=== PATIENT | male | born 1980 | race African-American/Black ===

== ENCOUNTER 2017-04-30 23:47 | Emergency (ER) | payer SELFPAY ==
[~2017-04-30] VITALS: Ht 177.8 cm; Wt 80.0 kg
[2017-04-30 23:50] VITALS: BP 104/64; PULSE 79; RESP 16; TEMP 98.6; O2SAT 99
--- NOTE | 2017-05-01 02:08 | PD ---
HPI Chief Complaint: Suicide Ideation/Attempt Time Seen by Provider: 01:58 Travel History International Travel<30 days: No Contact w/Intl Traveler<30days: No Traveled to known affect area: No History of Present Illness HPI 36-year-old black male presents to emergency department on a voluntary basis for psychological evaluation. The patient states that he has a history of schizophrenia, chronic back pain and neuropathy. He had been living in [place] but is from his significant other. He alleges that he was dropped off here in [facility] by someone. He is now homeless on the streets. He claims that he is feeling depressed and suicidal. He will not elaborate on any plan. He denies any homicidal ideation. He denies toxic ingestion. He denies any active medical complaints other than his chronic back pain and neuropathy. PFSH Past Medical History Bipolar Disorder: Yes Anxiety: Yes Depression: Yes Diminished Hearing: No Musculoskeletal: Yes (slipped disc and pinched nerve) Schizophrenia: Yes Tetanus Vaccination: Unknown Past Surgical History Other Surgery: Yes (arthroscopic knee) Social History Alcohol Use: No Tobacco Use: Yes Substance Use: Yes (unsure ) Allergies-Medications (Allergen,Severity, Reaction): Coded Allergies: No Known Allergies (Unverified , 04/30/17) Review of Systems General / Constitutional: No: Fever Eyes: No: Visual changes HENT: No: Headaches Cardiovascular: No: Chest Pain or Discomfort Respiratory: No: Shortness of Breath Gastrointestinal: No: Abdominal Pain Genitourinary: No: Dysuria Musculoskeletal: No: Pain Skin: No Rash Neurologic: No: Weakness Psychiatric: Positive: Suicidal Ideations, Mood Disorder, Substance Abuse, No: Anxiety, Depression, Disorder of Thought, Homicidal Ideation Endocrine: No: Polydipsia Hematologic/Lymphatic: No: Easy Bruising Physical Exam Narrative GENERAL: Well-nourished, well-developed patient. The patient appeared to be more interested in sleeping. He refuses to sit up and engage me during our history and exam. He lays back and closes his eyes. He pulls his arms into his shirt and goes to sleep readily. SKIN: Warm and dry. HEAD: Normocephalic and atraumatic. EYES: No scleral icterus. No injection or drainage. ENT: No nasal drainage noted. Mucous membranes pink. Airway patent. NECK: Supple, trachea midline. Moves head freely without obvious discomfort. CARDIOVASCULAR: Regular rate and rhythm without murmurs, gallops, or rubs. RESPIRATORY: Breath sounds equal bilaterally. No accessory muscle use. GASTROINTESTINAL: Abdomen soft, non-tender, nondistended. EXTREMITIES: No cyanosis or edema. BACK: Nontender without obvious deformity. No CVA tenderness. NEURO: Patient is alert and oriented. no sensorimotor deficits. Nonfocal. Normal speech. PSYCH: No delusions. No auditory or visual hallucinations. Data Data Last Documented VS Vital Signs Date Time Temp Pulse Resp B/P (MAP) Pulse Ox O2 Delivery O2 Flow Rate FiO2 05/01/17 04:20 74 16 96 Room Air 04/30/17 23:50 98.6 Orders Orders Complete Blood Count With Diff (05/01/17 02:09) Comprehensive Metabolic Panel (05/01/17 02:09) Psych Screen (05/01/17 02:09) Drug Screen, Random Urine (05/01/17 02:09) Alcohol (Ethanol) (05/01/17 02:09) Labs Laboratory Tests Test 05/01/17 02:57 05/01/17 04:40 White Blood Count 6.4 TH/MM3 Red Blood Count 4.32 MIL/MM3 Hemoglobin 12.6 GM/DL Hematocrit 38.4 % Mean Corpuscular Volume 88.9 FL Mean Corpuscular Hemoglobin 29.3 PG Mean Corpuscular Hemoglobin Concent 32.9 % Red Cell Distribution Width 13.2 % Platelet Count 252 TH/MM3 Mean Platelet Volume 8.4 FL Neutrophils (%) (Auto) 57.8 % Lymphocytes (%) (Auto) 24.0 % Monocytes (%) (Auto) 11.8 % Eosinophils (%) (Auto) 5.5 % Basophils (%) (Auto) 0.9 % Neutrophils # (Auto) 3.7 TH/MM3 Lymphocytes # (Auto) 1.5 TH/MM3 Monocytes # (Auto) 0.8 TH/MM3 Eosinophils # (Auto) 0.4 TH/MM3 Basophils # (Auto) 0.1 TH/MM3 CBC Comment DIFF FINAL Differential Comment Blood Urea Nitrogen 15 MG/DL Creatinine 1.11 MG/DL Random Glucose 98 MG/DL Total Protein 7.5 GM/DL Albumin 3.6 GM/DL Calcium Level 8.6 MG/DL Alkaline Phosphatase 76 U/L Aspartate Amino Transf (AST/SGOT) 22 U/L Alanine Aminotransferase (ALT/SGPT) 25 U/L Total Bilirubin 0.7 MG/DL Sodium Level 138 MEQ/L Potassium Level 3.8 MEQ/L Chloride Level 104 MEQ/L Carbon Dioxide Level 28.9 MEQ/L Anion Gap 5 MEQ/L Estimat Glomerular Filtration Rate 75 ML/MIN Ethyl Alcohol Level LESS THAN 3 MG/DL Urine Opiates Screen NEG Urine Barbiturates Screen NEG Urine Amphetamines Screen NEG Urine Benzodiazepines Screen NEG Urine Cocaine Screen POS Urine Cannabinoids Screen POS MDM Medical Decision Making Medical Screen Exam Complete: Yes Emergency Medical Condition: Yes Medical Record Reviewed: Yes Interpretation(s) Laboratory Tests Test 05/01/17 02:57 05/01/17 04:40 White Blood Count 6.4 TH/MM3 Red Blood Count 4.32 MIL/MM3 Hemoglobin 12.6 GM/DL Hematocrit 38.4 % Mean Corpuscular Volume 88.9 FL Mean Corpuscular Hemoglobin 29.3 PG Mean Corpuscular Hemoglobin Concent 32.9 % Red Cell Distribution Width 13.2 % Platelet Count 252 TH/MM3 Mean Platelet Volume 8.4 FL Neutrophils (%) (Auto) 57.8 % Lymphocytes (%) (Auto) 24.0 % Monocytes (%) (Auto) 11.8 % Eosinophils (%) (Auto) 5.5 % Basophils (%) (Auto) 0.9 % Neutrophils # (Auto) 3.7 TH/MM3 Lymphocytes # (Auto) 1.5 TH/MM3 Monocytes # (Auto) 0.8 TH/MM3 Eosinophils # (Auto) 0.4 TH/MM3 Basophils # (Auto) 0.1 TH/MM3 CBC Comment DIFF FINAL Differential Comment Blood Urea Nitrogen 15 MG/DL Creatinine 1.11 MG/DL Random Glucose 98 MG/DL Total Protein 7.5 GM/DL Albumin 3.6 GM/DL Calcium Level 8.6 MG/DL Alkaline Phosphatase 76 U/L Aspartate Amino Transf (AST/SGOT) 22 U/L Alanine Aminotransferase (ALT/SGPT) 25 U/L Total Bilirubin 0.7 MG/DL Sodium Level 138 MEQ/L Potassium Level 3.8 MEQ/L Chloride Level 104 MEQ/L Carbon Dioxide Level 28.9 MEQ/L Anion Gap 5 MEQ/L Estimat Glomerular Filtration Rate 75 ML/MIN Ethyl Alcohol Level LESS THAN 3 MG/DL Urine Opiates Screen NEG Urine Barbiturates Screen NEG Urine Amphetamines Screen NEG Urine Benzodiazepines Screen NEG Urine Cocaine Screen POS Urine Cannabinoids Screen POS Differential Diagnosis MDM: High Differential diagnoses: Schizophrenia, schizoaffective disorder, bipolar, anxiety, depression, adjustment reaction, mood disorder NOS, ODD, depressive disorder NOS, dementia, dementia with agitation, psychosis NOS, substance induced mood disorder, intermittent explosive disorder, Asperger syndrome, infection,electrolyte abnormality, malingering. Narrative Course Mental health screening discussed with the patient. Psychiatric screen ordered. The patient's been medically cleared. The patient's drug screen is positive for cocaine and marijuana. This is medical clearance for psychiatric admission, malingering, substance abuse Diagnosis Primary Impression: Medical clearance for psychiatric admission Additional Impressions: Malingering Substance abuse Condition: Stable Brayan Marr May 01, 2017 02:08
[2017-05-01 03:34] LABS: AUTOMATED NEUTROPHIL # 3.7 TH/MM3 (1.8-7.7); BASOPHIL # 0.1 TH/MM3 (0-0.2); BASOPHIL % 0.9 % (0.0-2.0); EOSINOPHIL # 0.4 TH/MM3 (0-0.4); EOSINOPHIL % 5.5 % (0.0-4.0); HEMATOCRIT 38.4 % (39.0-51.0); HEMO FLAGS DIFF FINAL; LYMPHOCYTE # 1.5 TH/MM3 (1.0-4.8); MEAN CELL VOLUME 88.9 FL (80.0-100.0); MEAN CORPUSCULAR HEMOGLOBIN 29.3 PG (27.0-34.0); MEAN CORPUSCULAR HGB CONC 32.9 % (32.0-36.0); MONO % 11.8 % (0.0-8.0); NEUT % 57.8 % (16.0-70.0); PLATELET COUNT 252 TH/MM3 (150-450); RED BLOOD COUNT 4.32 MIL/MM3 (4.50-5.90); RED CELL DISTRIBUTION WIDTH 13.2 % (11.6-17.2); WHITE BLOOD COUNT 6.4 TH/MM3 (4.0-11.0)
[2017-05-01 03:44] LABS: ALT (GPT) 25 U/L (12-78); ANION GAP 5 MEQ/L (5-15); AST (GOT) 22 U/L (15-37); BICARBONATE 28.9 MEQ/L (21.0-32.0); CHLORIDE 104 MEQ/L (98-107); GLOMERULAR FILTRATION RATE 75 ML/MIN (>89); POTASSIUM 3.8 MEQ/L (3.5-5.1); SODIUM (NA) 138 MEQ/L (136-145)
[2017-05-01 03:46] LABS: ALKALINE PHOSPHATASE 76 U/L (45-117); TOTAL BILIRUBIN ADULT 0.7 MG/DL (0.2-1.0)
[2017-05-01 04:10] LABS: ALCOHOL LESS THAN 3 MG/DL (0-5); BLOOD UREA NITROGEN 15 MG/DL (7-18)
[2017-05-01 04:20] VITALS: PULSE 74; RESP 16; O2SAT 96
[2017-05-01 10:48] VITALS: BP 115/78; PULSE 70; RESP 18; O2SAT 98
[2017-05-01] MEDS ORDERED: GABA300C5 PO (14:26)
[2017-05-01] MEDS ORDERED: SERO50TA PO (14:26)
[2017-05-01 16:00] VITALS: BP 128/76; PULSE 66; RESP 20; TEMP 98.1; O2SAT 98
[2017-05-01 18:00] VITALS: BP 130/60; PULSE 69; RESP 18
[2017-05-02 06:17] VITALS: BP 122/72; PULSE 67; RESP 16
--- NOTE | 2017-05-02 09:41 | PD ---
Physical Exam Time Seen by Provider: 09:40 Narrative Please refer to previous providers documentation for details surrounding the patient's current visit. Data Data Last Documented VS Vital Signs Date Time Temp Pulse Resp B/P (MAP) Pulse Ox O2 Delivery O2 Flow Rate FiO2 05/02/17 06:17 67 16 122/72 (89) 05/01/17 18:00 Room Air 05/01/17 16:00 98.1 98 Orders Orders Complete Blood Count With Diff (05/01/17 02:09) Comprehensive Metabolic Panel (05/01/17 02:09) Psych Screen (05/01/17 02:09) Drug Screen, Random Urine (05/01/17 02:09) Alcohol (Ethanol) (05/01/17 02:09) Diet Regular Basic (05/01/17 Dinner) Diet Regular Basic (05/02/17 Breakfast) Labs Laboratory Tests Test 05/01/17 02:57 05/01/17 04:40 White Blood Count 6.4 TH/MM3 Red Blood Count 4.32 MIL/MM3 Hemoglobin 12.6 GM/DL Hematocrit 38.4 % Mean Corpuscular Volume 88.9 FL Mean Corpuscular Hemoglobin 29.3 PG Mean Corpuscular Hemoglobin Concent 32.9 % Red Cell Distribution Width 13.2 % Platelet Count 252 TH/MM3 Mean Platelet Volume 8.4 FL Neutrophils (%) (Auto) 57.8 % Lymphocytes (%) (Auto) 24.0 % Monocytes (%) (Auto) 11.8 % Eosinophils (%) (Auto) 5.5 % Basophils (%) (Auto) 0.9 % Neutrophils # (Auto) 3.7 TH/MM3 Lymphocytes # (Auto) 1.5 TH/MM3 Monocytes # (Auto) 0.8 TH/MM3 Eosinophils # (Auto) 0.4 TH/MM3 Basophils # (Auto) 0.1 TH/MM3 CBC Comment DIFF FINAL Differential Comment Blood Urea Nitrogen 15 MG/DL Creatinine 1.11 MG/DL Random Glucose 98 MG/DL Total Protein 7.5 GM/DL Albumin 3.6 GM/DL Calcium Level 8.6 MG/DL Alkaline Phosphatase 76 U/L Aspartate Amino Transf (AST/SGOT) 22 U/L Alanine Aminotransferase (ALT/SGPT) 25 U/L Total Bilirubin 0.7 MG/DL Sodium Level 138 MEQ/L Potassium Level 3.8 MEQ/L Chloride Level 104 MEQ/L Carbon Dioxide Level 28.9 MEQ/L Anion Gap 5 MEQ/L Estimat Glomerular Filtration Rate 75 ML/MIN Ethyl Alcohol Level LESS THAN 3 MG/DL Urine Opiates Screen NEG Urine Barbiturates Screen NEG Urine Amphetamines Screen NEG Urine Benzodiazepines Screen NEG Urine Cocaine Screen POS Urine Cannabinoids Screen POS MDM Medical Record Reviewed: Yes Supervised Visit with YONNY: No Narrative Course Patient presented to the emergency department voluntarily for psychiatric evaluation. Patient was medically cleared by previous provider. Patient has been seen by psychiatry and with no further medical needs is being discharged at this time. Diagnosis Primary Impression: Medical clearance for psychiatric admission Additional Impressions: Substance abuse Malingering Referrals: [facility] (Out patient) Patient Instructions: General Instructions, Polysubstance Abuse (ED) Med/Other Pt SpecificInfo: No Change to Meds Disposition: 01 DISCHARGE HOME Condition: Stable Marcela Stanley May 02, 2017 09:41
--- NOTE | 2017-05-02 09:48 | PD ---
History of Present Illness Chief Complaint: Suicide Ideation/Attempt Time Seen by Provider: 09:30 Travel History International Travel<30 Days: No Contact w/Intl Traveler<30days: No Known affected area: No Legal Status Legal Status: Voluntary History of Present Illness: 36-year-old male presents voluntarily, seeking opiates for "pain". When informed by this physician that we do not treat pain in the psychiatric emergency department and that he is positive for cocaine, patient demanded transportation back to [place]. He was offered bus passes to [facility] for treatment of drug abuse. When informed we are unable to provide him with transportation back to [place], the patient indicated this physician was responsible to do so because the patient was under a [place]bar[place] act. When informed the patient was not under a [place]bar[place] act, he began to threaten to harm himself and call this physician names. This physician finds no significant objective clinical evidence of schizophrenia, as was listed earlier during his presentation. Instead, this physician finds significant evidence of drug abuse and malingering. PFSH Past Medical History Bipolar Disorder: Yes Anxiety: Yes Depression: Yes Diminished Hearing: No Musculoskeletal: Yes (slipped disc and pinched nerve) Schizophrenia: Yes Tetanus Vaccination: Unknown Past Surgical History Other Surgery: Yes (arthroscopic knee) Psychiatric History Psychiatric History Hx Psychiatric Treatment: PATIENT IS NOT A RELIABLE HISTORIAN. REPORTS THAT HE JUST GOT OUT OF THE [facility]. As stated earlier, this physician sees no significant clinically objective evidence of major mental illness. Patient shows evidence of drug abuse and malingering. He is currently homeless. History of Inpatient Treatment: Yes Guns or firearms in home: No Social History Hx Alcohol Use: No Hx Tobacco Use: Yes Hx Substance Use: Yes Substance Use Type: Crack, Marijuana Allergies-Medications (Allergen,Severity, Reaction): Coded Allergies: No Known Allergies (Unverified , 04/30/17) Reported Meds & Prescriptions Reported Meds & Active Scripts Active Reported Gabapentin 300 Mg Cap 300 Mg PO TID Seroquel (Quetiapine Fumarate) 50 Mg Tab 50 Mg PO HS Review of Systems Musculoskeletal: COMPLAINS OF: Joint pain Except as stated in HPI: all other systems reviewed are Neg Mental Status Examination Appearance: Appropriate Consciousness: Alert Orientation: x4 Motor Activity: Normal gait Speech: Unremarkable Language: Adequate Fund of Knowledge: Adequate Attention and Concentration: Adequate Memory: Unremarkable Mood: Appropriate Affect: Appropriate Thought Process & Associations: Intact Thought Content: Appropriate Hallucination Type: None Delusion Type: None Suicidal Ideation: Yes Suicidal Plan: No Suicidal Intention: No Homicidal Ideation: No Homicidal Plan: No Homicidal Intention: No Insight: Adequate Judgment: Adequate MDM Medical Decision Making Medical Record Reviewed: Yes Assessment/Plan Patient interviewed at bedside, medical record reviewed and case discussed with nurse Neeraj. Patient remains at risk for self-harm to "show" this physician that he is suicidal. This risk however is unavoidable and unpredictable and this physician cannot admit the patient based on this manipulative threat. It is counter therapeutic to allow patient to dictate treatment course. Patient does not want to go to [facility]. Patient was informed that he is responsible for his own behavior despite the fact that he would like to make this physician responsible. Patient continued to verbally threatened this physician and himself. Patient is being escorted off the premises by security. Orders Orders Diet Regular Basic (05/01/17 Dinner) Diet Regular Basic (05/02/17 Breakfast) Results Vital Signs Date Time Temp Pulse Resp B/P (MAP) Pulse Ox O2 Delivery O2 Flow Rate FiO2 05/02/17 06:17 67 16 122/72 (89) 05/01/17 18:00 69 18 130/60 (83) Room Air 05/01/17 16:00 98.1 66 20 128/76 (93) 98 Room Air 05/01/17 10:48 70 18 115/78 (90) 98 Room Air Diagnosis Primary Impression: Cocaine abuse Additional Impression: Malingering Referrals: [facility] (Out patient) Patient Instructions: General Instructions, Polysubstance Abuse (ED) Disposition: 01 DISCHARGE HOME Condition: Stable Problem Qualifiers Brandin Joy MD May 02, 2017 09:48
== END 2017-05-02 09:56 | disposition home or self-care (01) ==
LOC: NEPD 23:47 → NEPJ 05-02 09:56
DX: R45.851 Suicidal ideations (principal); F31.9 Bipolar disorder, unspecified; F41.9 Anxiety disorder, unspecified; F20.9 Schizophrenia, unspecified; F17.200 Nicotine dependence, unspecified, uncomplicated; Z76.5 Malingerer [conscious simulation]
CPT/HCPCS: 80053; 80307; 85025; 99284